=== PATIENT | female | born 1955 | race Caucasian/White ===

== ENCOUNTER → 2018-05-05 | Outpatient (CLI) | payer OTHER, MEDICARE ==
[~2018-05-05] VITALS: Ht 167.6 cm; Wt 124.3 kg
[~2018-05-05] MED LIST: ACCUNEB SO1.25 MG/1 INH; ASPIRIN325 PO; BUMETANIDE 1 MG1 M1 PO; CHLOROTHIAZIDE500 M2 PO; CIPRO500 MG PO; GLUCOPHAGE XR500 MG PO; KLOR-CON 1010 MEQ PO; METOPROLOL TART25 MG PO; NOVOLOG100 UNIT/1 SUBQ; NPLATE250 MCG IM; PREDNISONE 2.52.5 MG PO; PROAIR HFA8.5 GM INH; SYNTHROID50 MCG PO; TRESIBA FL100 UNIT/1 SUBQ; XANAX 0.25 MG0.25 MG PO
--- NOTE | ~2018-05-05 | PATH ---
[facility] [place] [address] PATHOLOGY RPT PROCEDURE Name: SAUNDRA HENDRIX Room #: REG CHARLES Jackman.#: [id number] Admission: 05/05/18 Date of : 55 Discharge: Report #: [id number] Path Case #: [id number] [facility] Accession Number: [id number] . 01 Material submitted: . PART A: BIOPSY PROXIMAL ASCENDING COLON THICKENED FOLD PART B: POLYP AT TRANSVERSE COLON PART C: POLYP AT RECTUM . 01 Clinical history: . Pre-OP DX: Hx of polyps Post-OP DX: Colon polyps, diverticulosis . 02 Diagnosis: A. Large intestinal mucosa, proximal ascending colon thickened fold, endoscopic biopsy: - Changes compatible with hyperplastic polyp. - Negative for active colitis. - Negative for dysplasia. . B. Polyp, at transverse colon, endoscopic biopsy: - Tubular adenoma. - Negative for high grade dysplasia. . C. Polyp, at rectum, endoscopic biopsy: - Consistent with an inflammatory polyp associated with surface ulceration. - Negative for dysplasia or malignancy. (IUV/db; 05/07/18) LBQ/05/07/2018 . 02 Electronically signed: . Cris Cosby MD, Pathologist NPI- [id number] . 01 Gross description: . A. Received in formalin labeled "Saundra Hendrix, BX proximal ascending colon thickened fold," are 4 segments of rod soft tissue measuring 1.1 x 0.5 x 0.2 cm in aggregate dimensions and ranging from 0.2 to 0.3 cm in maximum dimension. The specimen is submitted entirely in cassette A1. . B. Received in formalin labeled "Saundra Hendrix, polyp at transverse colon," is a single segment of rod soft tissue measuring 0.5 cm in maximum dimension. The specimen is submitted entirely in cassette B1. . C. Received in formalin labeled "Saundra Hendrix, polyp at rectum," [address] [address] PATHOLOGY RPT PROCEDURE Name: SAUNDRA HENDRIX Room #: REG [facility].#: [id number] Admission: 05/05/18 Date of : 55 Discharge: Report #: [id number] Path Case #: [id number] is a 0.4 x 0.3 x 0.3 cm polypoid piece of rod soft tissue with a stalk measuring 0.6 cm in length and 0.3 cm in diameter. The margin of the stalk is inked and the specimen is sectioned perpendicular to the margin and entirely submitted in cassette C1. (TSD; 05/05/2018) TOB/TOB . 02 Pathologist provided ICD-10: D12.3, K63.5, K62.1, K62.6 . 02 CPT . 912017, 103776, 430961 Performed at: [address], [place] [id number] MD Mele Moses MD Phone: [phone] Performed at: [address] [id number] MD Cris Cosby MD Phone: [phone]
--- NOTE | ~2018-05-05 | P ---
[facility] [place] [address] PROCEDURE REPORT Name: RUBY AMARAL Room #: REG CHARLES Jacinta#: [id number] Admission: 05/05/18 Attend Phys: Glenroy Ashton Discharge: Date of : 55 Report #: [id number] THIS REPORT FOR: //name// CC: Glenroy Styles DATE OF SERVICE: 05/05/2018 PROCEDURE PERFORMED: Colonoscopy with polypectomies. HISTORY OF PRESENT ILLNESS: The patient is a 62-year-old female with a history of colon polyps, last colonoscopy was performed in 2012. She also has a family history of colon cancer in her mother. The patient denies any symptoms at this time. PROCEDURE: The risks and benefits of the procedure were explained to the patient, those risks including, but not limited to bleeding, perforation and the risk of sedation. She understood these risks and gave informed consent. Sedation was given using propofol per anesthesia. Next, a digital rectal exam was initially performed, which was normal. Next, using a standard Olympus colonoscope, the scope was placed in the patient's anus and advanced under direct vision to the cecum. The overall prep was excellent. The cecum and ileocecal valve were normal in appearance. In the proximal ascending colon, there appears to be a submucosal lipoma. Several biopsies were obtained, otherwise normal. In the transverse colon, there was a 4-mm sessile polyp, this was removed with cold forceps, otherwise normal. The descending colon was normal. Multiple diverticula were noted in the sigmoid colon, no evidence of inflammation, otherwise normal. In the rectum, there was a 6-mm partially pedunculated polyp, this was removed by snare cautery, otherwise normal rectum. On retroflexion, small nonbleeding internal hemorrhoids were noted. The scope was then withdrawn and the procedure terminated. The patient tolerated the procedure well. IMPRESSION: 1. Two colonic polyps. 2. Sigmoid diverticulosis. 3. Internal hemorrhoids. 4. Otherwise, normal colonoscopy. RECOMMENDATIONS: 1. Await biopsy results. 2. Repeat colonoscopy in [address] [address] PROCEDURE REPORT Name: RUBY AMARAL Room #: REG [facility] [id number] Admission: 05/05/18 Attend Phys: Glenroy Ashton Discharge: Date of : 55 Report #: [id number] Thank you for allowing me to participate in her care. <ELECTRONICALLY SIGNED> By: Glenroy Ann MD 05/07/18 1032 [id number] [id number] Glenroy Ann MD /nt
== END | disposition home or self-care (01) ==
LOC: GI 07:22
DX: Z12.11 Encounter for screening for malignant neoplasm of colon (principal); Z86.010 Personal history of colon polyps; Z80.0 Family history of malignant neoplasm of digestive organs; D12.3 Benign neoplasm of transverse colon; K62.1 Rectal polyp; K57.30 Diverticulosis of large intestine without perforation or abscess without bleeding; K64.8 Other hemorrhoids; K21.9 Gastro-esophageal reflux disease without esophagitis; E11.9 Type 2 diabetes mellitus without complications; I10 Essential (primary) hypertension; E03.9 Hypothyroidism, unspecified; J43.9 Emphysema, unspecified; M79.7 Fibromyalgia; F41.9 Anxiety disorder, unspecified; G47.33 Obstructive sleep apnea (adult) (pediatric); Z87.891 Personal history of nicotine dependence; Z68.41 Body mass index [BMI] 40.0-44.9, adult; Z98.890 Other specified postprocedural states; Z98.41 Cataract extraction status, right eye; Z98.42 Cataract extraction status, left eye; Z85.828 Personal history of other malignant neoplasm of skin; Z79.4 Long term (current) use of insulin; Z90.81 Acquired absence of spleen; Z90.711 Acquired absence of uterus with remaining cervical stump; Z88.0 Allergy status to penicillin; Z88.6 Allergy status to analgesic agent; Z88.8 Allergy status to other drugs, medicaments and biological substances; Z79.899 Other long term (current) drug therapy
CPT/HCPCS: 62110; 62900